=== PATIENT | female | born 1975 ===

== ENCOUNTER 2019-04-08 06:53 | Day surgery (SDC) | payer OTHER ==
[~2019-04-08] VITALS: Ht 162.6 cm; Wt 77.1 kg
== END 2019-04-08 22:00 | disposition home or self-care (01) ==
LOC: ER 06:53 → PRENATAL 13:09 → CIR.AMB 13:09
DX: O02.1 Missed abortion (principal); Z3A.10 10 weeks gestation of pregnancy